=== PATIENT | male | born 1990 | race Caucasian/White ===

== ENCOUNTER 2017-04-13 14:46 | Emergency (ER) | payer SELFPAY ==
--- NOTE | 2017-04-13 15:43 | EDM.PDOC ---
ED HPI GENERAL MEDICAL PROBLEM - General Chief Complaint: Back Pain or Injury Stated Complaint: LOWER BACK PAIN Time Seen by Provider: 04/13/17 15:37 Source of Information: Reports: Patient History Limitations: Reports: No Limitations - History of Present Illness INITIAL COMMENTS - FREE TEXT/NARRATIVE: HISTORY AND PHYSICAL: History of present illness: Patient is a 26-year-old male who presents to the emergency room today with complaints of sciatic back pain. Patient reports he has a long-standing history of low back pain with sciatica approximately 12 years. Reports he has used over- the-counter pain relievers, foster care therapist, narcotic pain medications as prescribed intermittently when he has a flareup. Approximately 2 weeks ago he was helping lift a tire for friend and had immediate low back pain that radiates down his right glute through to the calf. Reports that he saw a chiropractor on last Wednesday and today which she received an adjustment and acupuncture. These were not effective in alleviating his pain. Denies any numbness or tingling to his lower extremities. Denies any urine or bowel incontinence. Patient does have a history of a lumbar CT scan approximately 6 years ago which she reports was normal. Has not had any new injuries or trauma to the area within the last few years. Review of systems: As per history of present illness and below otherwise all systems reviewed and negative. Past medical history: As per history of present illness and as reviewed below otherwise noncontributory. Surgical history: As per history of present illness and as reviewed below otherwise noncontributory. Social history: No reported history of drug or alcohol abuse. Family history: As per history of present illness and as reviewed below otherwise noncontributory. Physical exam: Gen.: Nontoxic appearing 26-year-old male. Alert and oriented x 3 HEENT: Atraumatic, normocephalic, pupils reactive, negative for conjunctival pallor or scleral icterus, mucous membranes moist, throat clear, neck supple, nontender, trachea midline. Lungs: Clear to auscultation, breath sounds equal bilaterally, chest nontender. Heart: S1S2, regular rate and rhythm Abdomen: Soft, nondistended, nontender. Negative for masses or hepatosplenomegaly. Negative for costovertebral tenderness. Pelvis: Stable nontender. Genitourinary: Deferred. Rectal: Deferred. Extremities: Atraumatic, negative for cords or calf pain. Neurovascular unremarkable. Neuro: Awake, alert, oriented. Cranial nerves II through XII unremarkable. Cerebellum unremarkable. Motor and sensory unremarkable throughout. Exam nonfocal. Diagnostics: [] Therapeutics: Toradol and Norflex IM Impression: Sciatica Definitive disposition and diagnosis as appropriate pending reevaluation and review of above. Duration: Week(s): (2) Location: Reports: Back Improves with: Reports: Rest Worsens with: Reports: Movement ED ROS GENERAL - Review of Systems Review Of Systems: ROS reveals no pertinent complaints other than HPI. ED EXAM, GENERAL - Physical Exam Exam: See Below (See dictation) Course - Orders/Labs/Meds Meds: Medications Discontinued Medications Generic Name Dose Route Start Last Admin Trade Name Andraeq PRN Reason Stop Dose Admin Ketorolac Tromethamine 60 mg 04/13/17 15:44 Toradol IM 04/13/17 15:45 ONETIME ONE Orphenadrine Citrate 60 mg 04/13/17 15:44 Norflex IM 04/13/17 15:45 NOW ONE Departure - Departure Time of Disposition: 15:47 Disposition: Home, Self-Care 01 Clinical Impression: Sciatica of right side - Discharge Information Referrals: PCP,None [Primary Care Provider] - Forms: ED Department Discharge Additional Instructions: The following information is given to patients seen in the emergency department who are being discharged to home. This information is to outline your options for follow-up care. We provide all patients seen in our emergency department with a follow-up referral. The need for follow-up, as well as the timing and circumstances, are variable depending upon the specifics of your emergency department visit. If you don't have a primary care physician on staff, we will provide you with a referral. We always advise you to contact your personal physician following an emergency department visit to inform them of the circumstance of the visit and for follow-up with them and/or the need for any referrals to a consulting specialist. The emergency department will also refer you to a specialist when appropriate. This referral assures that you have the opportunity for followup care with a specialist. All of these measure are taken in an effort to provide you with optimal care, which includes your followup. Under all circumstances we always encourage you to contact your private physician who remains a resource for coordinating your care. When calling for followup care, please make the office aware that this follow-up is from your recent emergency room visit. If for any reason you are refused follow-up, please contact the [facility] emergency department at and ask to speak to the emergency department charge nurse. [facility] Primary care- Internal Medicine and Family [place] [id number] [place] [id number] 1. A prescription for a muscle relaxer, Flexeril, was given to her back spasms and pain. He may take this medication up to 3 times a day (Disp #30). This medication may cause drowsiness a please to not taking this while needing to function at work or driving. 2. I would like you to take an anti-inflammatory pain medication such as ibuprofen or Aleve during the daytime hours. A limited amount of tramadol has been prescribed for you (#10). You may take 1 tablet at night at for pain, this medication may also cause drowsiness a do not take while needing to be functioning or driving. 3. Follow-up with your primary provider in the next 1-2 days. Return to the ED as needed as discussed
[2017-04-13] MEDS ORDERED: Ketorolac 60 MG/2 ML SDV IM ONE (15:44)
[2017-04-13 15:56] VITALS: BP 125/75
== END 2017-04-13 16:16 | disposition home or self-care (01) ==
LOC: MW.ED 14:46
DX: M54.41 Lumbago with sciatica, right side (principal)
CPT/HCPCS: 96372; 99282; J1885; J2360

== ENCOUNTER 2017-04-14 09:01 | Emergency (ER) | payer SELFPAY ==
[2017-04-14 09:10] VITALS: BP 151/69
[2017-04-14] MEDS ORDERED: Ketorolac 60 MG/2 ML SDV IM ONE (09:22)
--- NOTE | 2017-04-14 09:27 | EDM.PDOC ---
ED HPI GENERAL MEDICAL PROBLEM - General Chief Complaint: Back Pain or Injury Stated Complaint: BACK PAIN Time Seen by Provider: 04/14/17 09:11 - History of Present Illness INITIAL COMMENTS - FREE TEXT/NARRATIVE: HISTORY AND PHYSICAL: History of present illness: The patient is a 26-year-old male who presents to the emergency room today after being seen yesterday for similar complaints and is complaining again of lower back pain and sciatic back pain on the right side. He says he has a long- standing history of back pain approximately 12 years and has never had an MRI or seen a pain doctor. He has seen a chiropractor and has received medications in the past for this and he is saying that since flared up over the last 2 weeks after he lifted a tire. Yesterday he was given Toradol and Norflex and he says that that significantly helped his discomfort but he went home and slept for many hours and did not fill his prescriptions that he was given yesterday for tramadol and Flexeril. He has not taken any medications since he was discharged from the ER. The pain is not different or new and is very similar to his old and he has no bowel or bladder disturbances and no weakness in his legs. Review of systems: As per history of present illness and below otherwise all systems reviewed and negative. Past medical history: As per history of present illness and as reviewed below otherwise noncontributory. Surgical history: As per history of present illness and as reviewed below otherwise noncontributory. Social history: No reported history of drug or alcohol abuse. Family history: As per history of present illness and as reviewed below otherwise noncontributory. Physical exam: Gen.: Well-developed well-nourished man who moves easily in the ED without assistance. Vital signs been reviewed by me HEENT: Atraumatic, normocephalic, negative for conjunctival pallor or scleral icterus, mucous membranes moist, throat clear, neck supple, nontender, trachea midline. Lungs: Clear to auscultation with an occasional coarse breath sound appreciated in the bases, breath sounds equal bilaterally, chest nontender. Heart: S1S2, regular rate and rhythm no overt murmurs Abdomen: Soft, nondistended, nontender. Negative for masses or hepatosplenomegaly. Negative for costovertebral tenderness. Pelvis: Stable nontender. Genitourinary: Deferred. Rectal: He has normal perianal sensation, push and squeeze/tone Extremities: Atraumatic, negative for cords or calf pain. Neurovascular unremarkable. Range of motion Neuro: Awake, alert, oriented. Cranial nerves II through XII unremarkable. Cerebellum unremarkable. Motor and sensory unremarkable throughout. Exam nonfocal. Dorsi and plantar flexion are intact 5/5 inclusive of the great toe as well as tone in the lower extremities. Patellar reflexes are +2 over 4 bilaterally Diagnostics: [] Therapeutics: Toradol and Norflex We are currently working in the emergency department to get him a clinic appointment for follow-up for more chronic pain evaluation and management. We will repeat the dosing of Toradol and Norflex as that significantly helped him and I have strongly advised him to fill his prescriptions for pain meds and to at least try these. Impression: Lumbar back pain/sciatica right side, acute on chronic Definitive disposition and diagnosis as appropriate pending reevaluation and review of above. Right Lower Back Pain Score (Numeric/FACES): 8 - Related Data Allergies Allergy/AdvReac Type Severity Reaction Status Date / Time Penicillins Allergy Anaphylactic Verified 04/14/17 09:06 Shock promethazine [From Phenergan] Allergy Anaphylactic Verified 04/14/17 09:06 Shock Home Meds: Home Meds . [No Known Home Meds] 04/13/17 [History] Past Medical History - Past Health History Medical/Surgical History: Denies Medical/Surgical History Social & Family History - Family History Family Medical History: Noncontributory - Tobacco Use Smoking Status *Q: Current Every Day Smoker Years of Tobacco use: 11 Packs/Tins Daily: 0.5 - Caffeine Use Caffeine Use: Reports: Coffee, Energy Drinks, Soda, Tea - Recreational Drug Use Recreational Drug Use: No ED ROS GENERAL - Review of Systems Review Of Systems: ROS reveals no pertinent complaints other than HPI. ED EXAM, GENERAL - Physical Exam Exam: See Below (See dictation) Course - Vital Signs Last Recorded V/S: Last Vital Signs Temp 36.1 C 04/14/17 09:07 Pulse 69 04/14/17 09:07 Resp 18 04/14/17 09:07 BP 151/69 H 04/14/17 09:07 Pulse Ox 98 04/14/17 09:07 - Orders/Labs/Meds Orders: Active Orders 24 hr Category Date Time Status Ketorolac [Toradol] Med 04/14/17 09:22 Once 60 mg IM ONETIME ONE Orphenadrine [Norflex] Med 04/14/17 09:22 Once 60 mg IM ONETIME ONE Departure - Departure Time of Disposition: Disposition: Home, Self-Care 01 Condition: Good Clinical Impression: Back pain of lumbar region with sciatica - Discharge Information Referrals: PCP,None [Primary Care Provider] - Additional Instructions: The following information is given to patients seen in the emergency department who are being discharged to home. This information is to outline your options for follow-up care. We provide all patients seen in our emergency department with a follow-up referral. The need for follow-up, as well as the timing and circumstances, are variable depending upon the specifics of your emergency department visit. If you don't have a primary care physician on staff, we will provide you with a referral. We always advise you to contact your personal physician following an emergency department visit to inform them of the circumstance of the visit and for follow-up with them and/or the need for any referrals to a consulting specialist. The emergency department will also refer you to a specialist when appropriate. This referral assures that you have the opportunity for followup care with a specialist. All of these measure are taken in an effort to provide you with optimal care, which includes your followup. Under all circumstances we always encourage you to contact your private physician who remains a resource for coordinating your care. When calling for followup care, please make the office aware that this follow-up is from your recent emergency room visit. If for any reason you are refused follow-up, please contact the [facility] emergency department at and ask to speak to the emergency department charge nurse. [facility] Primary care- [place] [address] Please fill the prescriptions you're given yesterday and take as directed. Please also take [id number] anti-inflammatory such as Aleve/ibuprofen. Please keep your follow-up appointment and return to ER as needed and as discussed - My Orders Last 24 Hours: My Active Orders 04/14/17 09:22 Ketorolac [Toradol] 60 mg IM ONETIME ONE Orphenadrine [Norflex] 60 mg IM ONETIME ONE - Assessment/Plan Last 24 Hours: My Active Orders 04/14/17 09:22 Ketorolac [Toradol] 60 mg IM ONETIME ONE Orphenadrine [Norflex] 60 mg IM ONETIME ONE
== END 2017-04-14 09:49 | disposition home or self-care (01) ==
LOC: MW.ED 09:01
DX: M54.41 Lumbago with sciatica, right side (principal); F17.210 Nicotine dependence, cigarettes, uncomplicated; Z88.0 Allergy status to penicillin; Z88.8 Allergy status to other drugs, medicaments and biological substances
CPT/HCPCS: 96372; 99283; J1885; J2360; 99282